=== PATIENT | female | born 1980 | race Hispanic/Latino ===

== ENCOUNTER 2016-08-08 14:38 | Emergency (ER) | payer OTHER ==
[2016-08-08 14:42] VITALS: BP 126/90; PULSE 97; RESP 20; TEMP 98; O2SAT 100
[2016-08-08 14:44] VITALS: BMI 19.8
--- NOTE | 2016-08-08 15:00 | ED PDOC ---
HPI: Female Pain Time Seen by Provider: 08/08/16 14:40 Chief Complaint (Nursing): Female Genitourinary Chief Complaint (Provider): VAGINAL BLEEDING History Per: Patient (36 Y/O FEMALE A1 APPROX 6 WEEK HERE WITH LOWER ABDOMINAL CRAMPING PAIN ASSOCIATED WITH VAGINAL BLEEDING. HAS INITIAL APPT WITH DR. THOMPSON ON SATURDAY.) Past Medical History Reviewed: Historical Data, Nursing Documentation, Vital Signs Vital Signs: Last Vital Signs Temp 98.0 F 08/08/16 14:42 Pulse 97 H 08/08/16 14:42 Resp 20 08/08/16 14:42 BP 126/90 08/08/16 14:42 Pulse Ox 100 08/08/16 14:42 - Family History Family History: States: No Known Family Hx - Allergies Allergies/Adverse Reactions: Allergies Allergy/AdvReac Type Severity Reaction Status Date / Time Penicillins Allergy RASH Verified 08/08/16 14:42 Review of Systems ROS Statement: Except As Marked, All Systems Reviewed And Found Negative Physical Exam - Reviewed Nursing Documentation Reviewed: Yes Vital Signs Reviewed: Yes - Physical Exam Appears: Positive for: Well, Non-toxic, No Acute Distress Head Exam: Positive for: ATRAUMATIC, NORMAL INSPECTION, NORMOCEPHALIC Skin: Positive for: Normal Color, Warm, DRY Eye Exam: Positive for: EOMI, Normal appearance, PERRL ENT: Positive for: Normal ENT Inspection Neck: Positive for: Normal, Painless ROM Cardiovascular/Chest: Positive for: Regular Rate, Rhythm Respiratory: Positive for: CNT, Normal Breath Sounds Gastrointestinal/Abdominal: Positive for: Normal Exam, Bowel Sounds, Soft Pelvic Exam: Positive for: Active Bleeding, Other (CLOSED CERVIX. NONTENDER ADNEXA) Back: Positive for: Normal Inspection Extremity: Positive for: Normal ROM Neurologic/Psych: Positive for: Alert, Oriented - Laboratory Results Result Diagrams: 08/08/16 13:10 08/08/16 13:10 - ECG O2 Sat by Pulse Oximetry: 100 - Progress ED Course And Treament: BETA QUANT: 72 US TRANSVAGINAL: NO IUP NOTED; NO ADNEXAL MASS NOTED BLOOD TYPE O POSITIVE Disposition - Clinical Impression Clinical Impression: Threatened miscarriage in early - Patient ED Disposition Is Patient to be Admitted: No - Disposition Disposition: Routine/Home Disposition Time: 17:02 Condition: FAIR Additional Instructions: REPEAT BETA IN 2 DAYS . Instructions: Threatened Miscarriage (ED)
[2016-08-08 15:36] LABS: BASO # 0.1 K/uL (0.0-0.2); BASO % 0.7 % (0.0-2.0); EOS # 0.1 K/uL (0.0-0.7); EOS % 1.4 % (0.0-4.0); LYMPH # 2.3 K/uL (1.0-4.3); LYMPH % 26.6 % (20.0-40.0); MEAN CELL VOLUME 94.5 fl (81.0-99.0); MEAN CORPUSCULAR HEMOGLOBIN 31.6 pg (27.0-31.0); MEAN CORPUSCULAR HGB CONC 33.5 g/dL (33.0-37.0); MEAN PLATELET VOLUME 8.4 fl (7.2-11.7); MONO # 0.6 K/uL (0.0-0.8); MONO % 7.1 % (0.0-10.0); NEUT # 5.5 K/uL (1.8-7.0); NEUT % 64.2 % (50.0-75.0); RED CELL DISTRIBUTION WIDTH 14.1 % (11.5-14.5); WHITE BLOOD COUNT 8.5 K/uL (4.8-10.8)
[2016-08-08 15:44] LABS: ALB/GLOB RATIO 1.2 (1.0-2.1); ALKALINE PHOSPHATASE 65 U/L (38-126); ALT/SGPT 20 U/L (9-52); AST/SGOT 41 U/L (14-36); BLOOD UREA NITROGEN 13 mg/dl (7-17); CARBON DIOXIDE 25 mmol/L (22-30); CHLORIDE 99 mmol/L (98-107); GFR AFRICAN-AMERICAN > 60; GLUCOSE,RANDOM 82 mg/dL (65-105); SODIUM 134 mmol/l (132-148); TOTAL PROTEIN 8.5 G/DL (6.3-8.2)
[2016-08-08 15:45] LABS: POTASSIUM 4.3 MMOL/L (3.6-5.0)
--- NOTE | 2016-08-08 17:40 | US ---
Indication: R/O ECTOPIC , heavy bleeding Comparison: None available Technique: Ob transvaginal ultrasound Findings: The uterus measures approximately 6.3 x 3.5 x 5.1 cm. Retroverted. Cervix length measures approximately 3.1 cm. Endometrial thickness measures approximately 0.9 cm. No evidence of gestational sac. The right ovary measures 2.1 x 1.5 x 2.6 cm. The left ovary measures 2.6 x 1.0 x 2.5 cm. Blood flow was demonstrated to both ovaries. Impression: No evidence of intrauterine gestational sac. If indeed the patient is based on serum beta HCG values, the sonographic findings represent either: Very early IUP; embryonic demise; ectopic gestation. Follow-up with serial quantitative serum beta HCG measurements and post OBGYN follow-up is mandatory, since ectopic gestation cannot be excluded based only on sonographic findings.
== END 2016-08-08 17:24 | disposition home or self-care (01) ==
LOC: H.ER 14:38
DX: O20.0 Threatened abortion (principal)

== ENCOUNTER 2016-08-10 18:56 | Emergency (ER) | payer OTHER ==
[2016-08-10 18:57] VITALS: BMI 19.8
[2016-08-10 19:16] VITALS: BP 116/64; PULSE 88; RESP 18; TEMP 99; O2SAT 100
--- NOTE | 2016-08-10 20:51 | ED PDOC ---
HPI: General Adult Time Seen by Provider: 08/10/16 19:20 Chief Complaint (Nursing): Abnormal Labs Chief Complaint (Provider): Follow up labs History Per: Patient History/Exam Limitations: no limitations Onset/Duration Of Symptoms: Days (seen in the ED 3 days ago) Have you had recent travel within the past 21 days to any of the following countries: [place], [place], [place] or [place]?: No Current Symptoms Are (Timing): Better Recently: Seen In ED Additional Complaint(s): Janessa Gupta is a 36 year old female, A1 with and EGA of 6 weeks and no pertinent past medical history, presents to the ED for repeat blood work after having been seen 3 days ago for vaginal bleeding and pelvic pain. Patient states that pain has since completely resolved and that bleeding has improved but is still present. Denies history of ectopic PCP:NO FAMILY PROVIDER Past Medical History Vital Signs: Last Vital Signs Temp 99.0 F 08/10/16 19:12 Pulse 88 08/10/16 19:12 Resp 18 08/10/16 19:12 BP 116/64 08/10/16 19:12 Pulse Ox 100 08/11/16 00:01 - Family History Family History: States: No Known Family Hx - Immunization History Hx Tetanus Toxoid Vaccination: No Hx Influenza Vaccination: No Hx Pneumococcal Vaccination: No - Allergies Allergies/Adverse Reactions: Allergies Allergy/AdvReac Type Severity Reaction Status Date / Time Penicillins Allergy RASH Verified 08/08/16 14:42 Physical Exam - Physical Exam Appears: Positive for: Non-toxic, No Acute Distress Skin: Positive for: Normal Color, Warm, Dry Gastrointestinal/Abdominal: Positive for: Normal Exam, Soft. Negative for: Tenderness Back: Positive for: Normal Inspection. Negative for: L CVA Tenderness, R CVA Tenderness, Vertebral Tenderness Neurologic/Psych: Positive for: Alert, Oriented - Laboratory Results Result Diagrams: 08/10/16 21:35 08/10/16 21:35 - ECG O2 Sat by Pulse Oximetry: 100 (RA) Pulse Ox Interpretation: Normal - Progress ED Course And Treament: TVUS: No IUP Beta: 44. OB certified nutritionist called and awaiting call back. Pt. informed of results and states she does not want to wait for OB to call back. Instructed to f/u with her SAUTE CHEF without fail and to return to ED immediately for any concerns or questions. Medical Decision Making Medical Decision Makin:20 Initial Impression: Repeat blood work Initial Plan: * Type and Screen * BETA-HCG Quantitative * CMP * CBC * OB transvaginal US * reevaluation Scribe Attestation: Documented by Tori Daly training under Kina Gutierrez, acting as a scribe for Vicente Gillette PA-C. Provider Scribe Attestation: All medical record entries made by the Scribe were at my direction and personally dictated by me. I have reviewed the chart and agree that the record accurately reflects my personal performance of the history, physical exam, medical decision making, and the department course for this patient. I have also personally directed, reviewed, and agree with the discharge instructions and disposition. Disposition - Clinical Impression Clinical Impression: Miscarriage - Patient ED Disposition Is Patient to be Admitted: No - Disposition Referrals: [facility] [Outside] Disposition: Routine/Home Disposition Time: 23:15 Condition: STABLE Instructions: Spontaneous Miscarriage (ED) Print Language: OMANI
[2016-08-10 22:05] LABS: BASO # 0.1 K/uL (0.0-0.2); BASO % 0.8 % (0.0-2.0); EOS # 0.2 K/uL (0.0-0.7); EOS % 2.3 % (0.0-4.0); HEMATOCRIT 39.1 % (34.0-47.0); LYMPH # 3.5 K/uL (1.0-4.3); LYMPH % 41.5 % (20.0-40.0); MEAN CELL VOLUME 94.1 fl (81.0-99.0); MEAN CORPUSCULAR HEMOGLOBIN 32.1 pg (27.0-31.0); MEAN CORPUSCULAR HGB CONC 34.1 g/dL (33.0-37.0); MEAN PLATELET VOLUME 8.5 fl (7.2-11.7); MONO # 0.5 K/uL (0.0-0.8); MONO % 5.7 % (0.0-10.0); NEUT # 4.2 K/uL (1.8-7.0); NEUT % 49.7 % (50.0-75.0); RED CELL DISTRIBUTION WIDTH 13.9 % (11.5-14.5); WHITE BLOOD COUNT 8.4 K/uL (4.8-10.8)
[2016-08-10 22:21] LABS: ALB/GLOB RATIO 1.2 (1.0-2.1); ALKALINE PHOSPHATASE 70 U/L (38-126); ALT/SGPT 29 U/L (9-52); AST/SGOT 28 U/L (14-36); BILIRUBIN,TOTAL 0.2 mg/dl (0.2-1.3); BLOOD UREA NITROGEN 14 mg/dl (7-17); CALCIUM 9.3 mg/dL (8.4-10.2); CARBON DIOXIDE 27 mmol/L (22-30); CHLORIDE 103 mmol/L (98-107); GFR AFRICAN-AMERICAN > 60; GLUCOSE,RANDOM 93 mg/dL (65-105); POTASSIUM 4.2 MMOL/L (3.6-5.0); SODIUM 137 mmol/l (132-148); TOTAL PROTEIN 7.9 G/DL (6.3-8.2)
--- NOTE | 2016-08-10 22:31 | US ---
EXAM: US , Transvaginal CLINICAL HISTORY: 36 years old, female; Signs and symptoms; Lmp or gestational age (in weeks): 06/25/16; Antepartum complications; Hemorrhage; Additional info: Vaginal bleeding; TECHNIQUE: Real-time transvaginal obstetrical ultrasound of the maternal pelvis and a first trimester with image documentation. Transvaginal imaging was used for better evaluation of the fetus and adnexa. COMPARISON: No relevant prior studies available. FINDINGS: Gestation: No intrauterine gestational sac. Uterus/cervix: Endometrium: 0.7 cm in thickness. Closed cervix. Ovaries: Normal ovaries. No adnexal masses. Free fluid: No significant free fluid. IMPRESSION: 1. No intrauterine gestation. DDX: Early IUP, missed , ectopic . 2. Incidental/non-acute findings are described above.
== END 2016-08-10 23:15 | disposition home or self-care (01) ==
LOC: H.ER 18:56
DX: O03.9 Complete or unspecified spontaneous abortion without complication (principal); Z3A.01 Less than 8 weeks gestation of pregnancy; Z88.0 Allergy status to penicillin

== ENCOUNTER 2017-08-29 01:22 | Inpatient (IN) | payer OTHER ==
[2017-08-29] MEDS ORDERED: Phenaphthazine-PH Test Paper VI ONE (02:03)
[2017-08-29 02:23] VITALS: BMI 25.0
[2017-08-29] MEDS ORDERED: Clindamycin 600mg/50ml D5W 600 MG/50 ML VIAL IVPB ONE (02:23)
[2017-08-29] MEDS ORDERED: Sodium Chloride 0.9% 1,000 ML IV SCH ×2 (02:30→09:17)
[2017-08-29] MEDS ORDERED: Lactated Ringer's 1,000 ML IV SCH ×2 (02:30→10:00)
[2017-08-29 03:26] LABS: BASO # 0.1 K/uL (0.0-0.2); BASO % 0.8 % (0.0-2.0); EOS # 0.2 K/uL (0.0-0.7); EOS % 1.8 % (0.0-4.0); HEMOGLOBIN 12.7 g/dL (12.0-16.0); LYMPH # 3.3 K/uL (1.0-4.3); LYMPH % 24.4 % (20.0-40.0); MEAN CELL VOLUME 93.9 fl (81.0-99.0); MEAN CORPUSCULAR HEMOGLOBIN 33.4 pg (27.0-31.0); MEAN CORPUSCULAR HGB CONC 35.6 g/dL (33.0-37.0); MEAN PLATELET VOLUME 8.9 fl (7.2-11.7); MONO # 0.8 K/uL (0.0-0.8); NEUT # 9.2 K/uL (1.8-7.0); RBC 3.79 Mil/uL (3.80-5.20); RED CELL DISTRIBUTION WIDTH 13.7 % (11.5-14.5); WHITE BLOOD COUNT 13.7 K/uL (4.8-10.8)
[2017-08-29] MEDS ORDERED: Phenylephrine 10 mg/ml Inj ONE (05:02)
[2017-08-29] MEDS ORDERED: ePHEDrine 50 mg/ml Inj ONE (05:03)
[2017-08-29] MEDS ORDERED: Morphine 1 mg/ml preservative-free Inj(Duramorph) ONE (05:04)
--- NOTE | 2017-08-29 05:25 | OBADHP ---
Datetime: 08/29/2017 01:55 Admit Comment, IP Provider: Pt is a 37 y/o female with IUP 39.4 wks (DIEGO 09/01) presenting to OB ED with LOF at 1am. Pt denies any ctx, vb. Reports +FM. Pt was breech in U/S last week, plan for c se ction. PNC: Dr. Mantilla, Mother is a CF carrier, Fetus- accessory renal artery OBHx: 1 SAB, 1 TOP PMHx: denied PSurgx: denies Allergies: Penicillin G, Amoxacillin- Anaphylaxis Social: denies habits x3 Maternal vital signs: 130/90, HR 97 GeneralL: Pt appears comfortable, NAD Cardio: RRR, no murmurs Resp: CTABL Abdomen: Gravid, NT Extr: No edema Speculum: +Pooling Nitrazine + Cervix: FT, high Limited bedside U/S: BREECH A: Admit to L_D. Plan for C section in the AM. Anceph for prophylaxis. CBC, Type and screen. NPO Discussed case with OB Attending, Dr. Jose Rafael Mcmahan, PGY1 Patient was seen with the residnet I agree with the note Vital Signs Provider: Reviewed; Within Normal Limits IP Chief Complaint: Suspected ruptured membranes EGA AdmitDate IP: 39.4 IP Adm Impression: Term, intrauterine IP Admit Plan: Initiate labor protocol
--- NOTE | 2017-08-29 05:27 | OBDS ---
DELIVERY PERSONNEL Delivery Doctor: Caity Mantilla MD Customs Compliance Specialist: Miko Shabazz RN Anesthesiologist: Sarwat Sanon MD Resident: Carolina Vanegas MD MATERNAL INFORMATION Delivery Anesthesia: Spinal Medications in Delivery: oxytocin 30 units/500cc LR Placenta Cultured: No Maternal Complications: None Provider Comments: see operative note LABOR SUMMARY EDC: 09/01/2017 00:00 No. Babies in Womb: 1 Attempted: No Labor Anesthesia: None LABOR INFORMATION Reason for Induction: Not Applicable Oxytocin: N/A Group B Beta Strep: Negative Steroids Given: None Reason Steroids Not Administered: Not Applicable MEMBRANES Membranes Rupture Method: Spontaneous Rupture of Membranes: 08/29/2017 01:00 Amniotic Fluid Color: Clear Amniotic Fluid Amount: None Amniotic Fluid Odor: Normal CSECTION DELIVERY Primary Indication: Breech Presentation CSection Urgency: Non Elective CSection Incidence: Primary Labor: No Labor Elective: Nonelective CSection Incision: Lower Uterine Transverse BABY A INFORMATION Method of Delivery: Born in Route : No : N/A Forceps: N/A Vacuum Extraction: N/A Shoulder Dystocia : No PRESENTATION/POSITION BABY A Presentation: Breech Cephalic Presentation: N/A Vertex Position: Left Occipital Posterior INFORMATION BABY A Gestational Age at Delivery: 39.4 Gestational Status: Term Infant Outcome : Liveborn Condition : Stable Sex: Male
[2017-08-29] MEDS ORDERED: DiphenhydrAMINE 50 mg/ml Inj IVP PRN ×2 (06:00→09:17)
[2017-08-29] MEDS ORDERED: Oxycodone/Acetaminophen 5/325 mg Tab PO PRN ×4 (06:00→09:17)
--- NOTE | 2017-08-29 09:36 | OP ---
PROCEDURE DATE: 08/29/17 PREOPERATIVE DIAGNOSES: Intrauterine at 39 weeks 4 days, spontaneous rupture of membranes, clear fluid, breech presentation. POSTOPERATIVE DIAGNOSES: Intrauterine at 39 weeks 4 days, spontaneous rupture of membranes, clear fluid, breech presentation. OPERATION PERFORMED: Primary low flap transverse section via Pfannenstiel skin incision. SURGEON: Eben Mantilla MD ELECTRONICS ENGINEERING PROFESSOR: Dr. Casas, she was instrumental in the care of the patient, she helped to create exposure. She was helpful on obtaining hemostasis, delivery of the infant and closure of the patient. TYPE OF ANESTHESIA: Spinal. ANESTHESIA ADMINISTERED BY: Addy Sanon MD ESTIMATED BLOOD LOSS: 800 mL. URINE OUTPUT: Harrell catheter put out approximately 400 mL of clear urine. INTRAVENOUS FLUID INTAKE: The patient received 1100 mL of D5 LR intraoperatively. OPERATIVE FINDINGS: Baby boy, breech presentation. Apgars 9 and 9. Weighing 2840 grams. Normal uterus, tubes, and ovaries were identified. DESCRIPTION OF PROCEDURE: After informed consent was obtained, the patient was taken to the operating room where she was given spinal anesthesia. She was then prepped and draped in the normal sterile fashion with a leftward tilt. A Pfannenstiel skin incision was then made with a scalpel and carried down to the underlying layer of fascia. The fascia was nicked in the midline. The fascial incision was then extended laterally with the curved Oden scissors. The superior aspect of the fascial incision was then grasped with Guillermina clamps, elevated up, and the rectus muscles were dissected off using both sharp and blunt dissection. Attention was then turned to the inferior aspect of the fascial incision, which in similar fashion was grasped with Guillermina clamps, elevated up, and the rectus muscles were dissected off using both sharp and blunt dissection. The rectus muscles were then in the midline. The peritoneum identified and entered sharply with the Metzenbaum scissors. The peritoneal incision was then extended superiorly and inferiorly with good visualization of the bladder. The bladder blade was inserted. The vesicouterine peritoneum was identified and entered sharply with the Metzenbaum scissors. The incision was then extended laterally and the bladder flap was created digitally. The bladder blade was then readjusted, and a low transverse incision was made with a scalpel. The uterine incision was then extended laterally with the bandage scissors. The breech was then delivered atraumatically. The nose and mouth were suctioned with DeLee suction trap. The cord was clamped and cut. The infant was handed off to awaiting pediatricians. The placenta was removed manually. The uterus was exteriorized and cleared off all clots and debris. The uterine incision was repaired with 0 Vicryl in a running locked fashion. A second layer of the same suture was used to obtain excellent hemostasis. The abdomen was then copiously irrigated. The irrigant was removed with the suction device. The uterus was returned to the abdomen. The gutters were then cleared of all clots and debris. The uterine incision was examined and noted to be hemostatic. The peritoneum was then closed with 2-0 Vicryl in a running fashion. The muscle was reapproximated with 0 Vicryl in an interrupted fashion. The fascia was closed with 0 Vicryl in a running fashion. The skin was closed with 4-0 on a Gagan needle. All sponge, lap, needle, and instrument counts were correct x2 and the patient was taken to the recovery room in awake and stable condition. Eben Mantilla MD
[2017-08-30 06:47] LABS: BASO % 0.2 % (0.0-2.0); EOS # 0.1 K/uL (0.0-0.7); EOS % 0.9 % (0.0-4.0); HEMOGLOBIN 11.5 g/dL (12.0-16.0); LYMPH # 2.5 K/uL (1.0-4.3); LYMPH % 15.8 % (20.0-40.0); MEAN CELL VOLUME 94.4 fl (81.0-99.0); MEAN CORPUSCULAR HEMOGLOBIN 33.1 pg (27.0-31.0); MEAN CORPUSCULAR HGB CONC 35.1 g/dL (33.0-37.0); MEAN PLATELET VOLUME 8.1 fl (7.2-11.7); MONO % 6.5 % (0.0-10.0); NEUT % 76.6 % (50.0-75.0); RBC 3.48 Mil/uL (3.80-5.20); WHITE BLOOD COUNT 15.7 K/uL (4.8-10.8)
--- NOTE | 2017-08-30 10:26 | OBPPN ---
Datetime: 08/30/2017 10:24 PP Pain Prov: Within normal limits PP Nausea Prov: Denies PP Flatus Prov: Yes PP BM Prov: No PP Breasts Prov: Normal PP Heart Prov: Normal PP Lungs Prov: Normal PP Abdomen/Uterus Prov: Normal PP Lochia Prov: Normal PP Vulva/Perineum Prov: Normal PP CVA Tenderness Prov: Normal PP Extremities Prov: Normal PP Impression Prov: Normal progression PP Plan Prov: Continue present management PP Progress Note Prov: H/H A; S/P day 1 PLAN : cont postop care Vital Signs Provider PP: Reviewed; Within Normal Limits
--- NOTE | 2017-08-31 08:41 | OBPPN ---
Datetime: 08/31/2017 08:38 PP Pain Prov: Within normal limits PP Nausea Prov: Denies PP Flatus Prov: Yes PP BM Prov: Yes PP Breasts Prov: Normal PP Heart Prov: Normal PP Lungs Prov: Normal PP Abdomen/Uterus Prov: Normal PP Lochia Prov: Normal PP Vulva/Perineum Prov: Normal PP CVA Tenderness Prov: Normal PP Extremities Prov: Normal PP C/S Incision Prov: Normal PP Impression Prov: Normal progression PP Plan Prov: Continue present management PP Progress Note Prov: She had a BM yesterday night and feel much better than yesterday. A: S/P day 2 PLAN anticipate discharge in AM Vital Signs Provider PP: Reviewed; Within Normal Limits
--- NOTE | 2017-08-31 13:11 | OBDCSUM ---
Datetime: 08/31/2017 11:53 Discharged to, Provider: Home Follow up at, Provider: Dr Mantilla Disch Instr Activity: Normal activity Disch Instr Diet: Regular Discharge Diagnosis, Provider: Term Delivered Follow up in weeks, Provider: 1 week Disch Referrals: None Disch Activity Restrictions: Minimize stair-climbing; No sexual activity; Nothing in vagina - Interc ourse, tampons, douche
[2017-08-31 18:16] VITALS: BP 105/60; PULSE 80; RESP 20; TEMP 98; O2SAT 98
== END 2017-08-31 13:15 | disposition home or self-care (01) | DRG 371 ==
LOC: H.EROB2 01:22 → H.L&D 02:31 → H.OB/GYN 09:00
PROVIDERS: ADMIT Obstetrics & Gynecology Gynecology; ATTEND Obstetrics & Gynecology Gynecology
PROC: 10D00Z1 Extraction of Products of Conception, Low, Open Approach (ICD-10-PCS; principal; 2017-08-29)
PROC: 4A1HXCZ Monitoring of Products of Conception, Cardiac Rate, External Approach (ICD-10-PCS; 2017-08-29)
DX: O32.1XX0 Maternal care for breech presentation, not applicable or unspecified (principal); Z3A.39 39 weeks gestation of pregnancy; Z37.0 Single live birth